=== PATIENT | female | born 1980 | race Caucasian/White ===

== ENCOUNTER 2018-07-26 11:42 | Emergency (ER) | payer OTHER ==
--- NOTE | 2018-07-26 15:39 | ED Physician Documentation ---
History of Present Illness - Stated complaint Stated Complaint: FEVER/NECK PX/VILLELA/VOMITING - Chief complaint Chief Complaint: General - History obtained from History obtained from: Patient - History of Present Illness Timing: How many days ago (4) Pain level max: 5 Pain level now: 4 Improved by: rest Worsened by: movement - Additonal information Additional information: Patient is a 38-year-old female who presents to the emergency department with fevers, cough and congestion and right-sided neck pain and right ear pain for the past 4 days. has been using motrin at home. Review of Systems Constitutional: reports: Fever, Chills GI: denies: Vomiting, Diarrhea Skin: denies: Rash Musculoskeletal: denies: Back pain Neurologic: denies: Headache PD PAST MEDICAL HISTORY - Past Medical History Past Medical History: No - Present Medications Home Medications: Ambulatory Orders Medication Instructions Recorded Confirmed Azithromycin [Zithromax] 250 mg PO ONCE #6 tablet 07/26/18 - Allergies Allergies/Adverse Reactions: Allergies Allergy/AdvReac Type Severity Reaction Status Date / Time Penicillins Allergy Unknown Verified 07/26/18 15:01 - Social History Does the pt smoke?: No Smoking Status: Never smoker PD ED PE NORMAL - Vitals Vital signs reviewed: Yes - General General: Alert and oriented X 3, No acute distress, Well developed/nourished - HEENT HEENT: PERRL, Moist mucous membranes, Pharynx benign, Other (Right tympanic membrane is scarred, erythematous, dull, bulging with purulent fluid present.) - Neck Neck: Supple, no meningeal sign, Other (Right posterior cervical lymphadenopathy present, reproduces her neck pain. No meningeal signs) - Cardiac Cardiac: RRR, Strong equal pulses - Respiratory Respiratory: No respiratory distress, Clear bilaterally - Derm Derm: Warm and dry - Neuro Neuro: Alert and oriented X 3 Results - Vitals Vitals: Vital Signs - 24 hr 07/26/18 07/26/18 07/26/18 11:57 14:28 15:52 Temperature 36.2 C L 36.2 C L Heart Rate 88 70 68 Respiratory 18 18 18 Rate Blood Pressure 123/84 H 110/67 125/77 O2 Saturation 99 97 99 Oxygen O2 Source Room air - Labs Labs: Laboratory Tests 07/26/18 07/26/18 12:12 12:12 Influenza A (Rapid) Negative Influenza B (Rapid) Negative Group A Strep Rapid Negative PD MEDICAL DECISION MAKING - ED course Complexity details: considered differential, d/w patient ED course: Patient is a 38-year-old female who presents to the emergency department what appears to be a right acute otitis media as well as a viral syndrome. She is well-appearing, nontoxic. Afebrile. No evidence of meningitis. Will place on antibiotics and follow-up closely with her doctor. Patient counseled regarding signs and symptoms for which I believe and urgent re-evaluation would be necessary. Patient with good understanding of and agreement to plan and is comfortable going home at this time This document was made in part using voice recognition software. While efforts are made to proofread this document, sound alike and grammatical errors may occur. Departure - Departure Disposition: 01 Home, Self Care Clinical Impression: Viral syndrome Otitis media Qualifiers: Otitis media type: suppurative Chronicity: acute Laterality: right Recurrence: not specified as recurrent Spontaneous tympanic membrane rupture: without spontaneous rupture Qualified Code(s): H66.001 - Acute suppurative otitis media without spontaneous rupture of ear drum, right ear Condition: Good Instructions: ED Otitis Media Acute Adult, ED Viral Syndrome Follow-Up: KHLOE RIBEIRO DO [Primary Care Provider] - Within 1 week Prescriptions: Azithromycin [Zithromax] 250 mg PO ONCE #6 tablet Comments: Take all antibiotics until gone. Return if you worsen. This should improve with the antibiotic treatment. Discharge Date/Time: 07/26/18 15:52
[2018-07-26 15:52] VITALS: BP 125/77
== END 2018-07-26 15:52 | disposition home or self-care (01) ==
LOC: ED 11:42
DX: B34.9 Viral infection, unspecified (principal); H66.001 Acute suppurative otitis media without spontaneous rupture of ear drum, right ear
CPT/HCPCS: 87070; 87275; 87276; 87430; 99283

== ENCOUNTER 2018-11-13 02:15 | Emergency (ER) | payer OTHER ==
[2018-11-13] MEDS ORDERED: SODIUM CHLORIDE 0.9% 1,000 ML IV ONE (02:22)
--- NOTE | 2018-11-13 02:33 | ED Physician Documentation ---
History of Present Illness - Stated complaint Stated Complaint: N/V S/P INGESTION/ETOH - Chief complaint Chief Complaint: MHE - Additonal information Additional information: 38-year-old female was brought in by EMS for an overdose of alcohol and cold medication. The intention is unknown. The patient is confused and altered and unable to provide any significant history. The patient was found by her and he called EMS.The history is limited secondary to the patient's intoxication Review of Systems Unable to obtain: Intoxicated PD PAST MEDICAL HISTORY - Present Medications Home Medications: Ambulatory Orders Medication Instructions Recorded Confirmed No Known Home Medications 11/13/18 11/13/18 - Allergies Allergies/Adverse Reactions: Allergies Allergy/AdvReac Type Severity Reaction Status Date / Time Penicillins Allergy Unknown Verified 11/13/18 02:23 - Social History Does the pt smoke?: No Smoking Status: Never smoker PD ED PE NORMAL - General General: Other (The patient is alert, intoxicated but appears to be in no acute distress) - HEENT HEENT: Atraumatic, PERRL, EOMI, Ears normal - Neck Neck: Supple, no meningeal sign - Cardiac Cardiac: RRR, Strong equal pulses - Respiratory Respiratory: No respiratory distress - Abdomen Abdomen: Soft, Non tender - Derm Derm: Normal color - Extremities Extremities: No deformity, No calf tenderness / cord - Neuro Neuro: Other (The patient is alert, follows commands and has no acute focal weakness) - Psych Psych: Other (Intoxicated) Results - Vitals Vitals: Vital Signs - 24 hr 11/13/18 11/13/18 11/13/18 02:17 02:25 02:49 Temperature 37.0 C Heart Rate 105 H 98 95 Respiratory 26 H 26 H 25 H Rate Blood Pressure 115/80 105/81 H 105/81 H O2 Saturation 95 95 95 11/13/18 11/13/18 11/13/18 03:08 03:42 04:46 Temperature Heart Rate 87 89 92 Respiratory 21 23 25 H Rate Blood Pressure 99/65 95/67 96/58 L O2 Saturation 95 100 96 11/13/18 11/13/18 11/13/18 05:25 05:53 06:39 Temperature 36.5 C Heart Rate 86 98 87 Respiratory 21 21 19 Rate Blood Pressure 93/59 L 104/72 98/64 O2 Saturation 96 97 96 Oxygen O2 Source Room air - Labs Labs: Laboratory Tests 11/13/18 11/13/18 11/13/18 02:30 02:30 02:43 WBC 10.0 RBC 4.15 L Hgb 14.1 Hct 40.4 MCV 97.4 MCH 33.8 H MCHC 34.7 RDW 13.9 Plt Count 242 MPV 8.3 Neut # (Auto) 6.9 H Lymph # (Auto) 2.1 [place] # (Auto) 0.7 Eos # (Auto) 0.2 Baso # (Auto) 0.1 Absolute Nucleated RBC 0.00 Nucleated RBC % 0.0 Sodium 142 Potassium 3.4 L Chloride 111 Carbon Dioxide 21 Anion Gap 10.0 BUN 8 Creatinine 0.6 Estimated GFR (MDRD) 111 Glucose 135 H Calcium 8.8 Total Bilirubin 0.2 AST 18 ALT 17 Alkaline Phosphatase 60 Total Creatine Kinase 57 Total Protein 7.0 Albumin 4.2 Globulin 2.8 Albumin/Globulin Ratio 1.5 Lipase 26 Urine Color Urine Clarity Urine pH Ur Specific [place] Urine Protein Urine Glucose (UA) Urine Ketones Urine Occult Blood Urine Nitrite Urine Bilirubin Urine Urobilinogen Ur Leukocyte Esterase Urine RBC Urine WBC Ur Squamous Epith Cells Urine Bacteria Ur Microscopic Review Urine Culture Comments Urine HCG, Qual Salicylates < 6.0 Urine Opiates Screen NEGATIVE Ur Oxycodone Screen NEGATIVE Urine Methadone Screen NEGATIVE Ur Propoxyphene Screen NEGATIVE Acetaminophen 46 H* Ur Barbiturates Screen NEGATIVE Ur Tricyclics Screen NEGATIVE Ur Phencyclidine Scrn NEGATIVE Ur Amphetamine Screen NEGATIVE U Methamphetamines Scrn NEGATIVE U Benzodiazepines Scrn NEGATIVE Urine Cocaine Screen NEGATIVE U Cannabinoids Screen NEGATIVE Ethyl Alcohol 262.7 11/13/18 11/13/18 02:43 05:50 WBC RBC Hgb Hct MCV MCH MCHC RDW Plt Count MPV Neut # (Auto) Lymph # (Auto) [place] # (Auto) Eos # (Auto) Baso # (Auto) Absolute Nucleated RBC Nucleated RBC % Sodium Potassium Chloride Carbon Dioxide Anion Gap BUN Creatinine Estimated GFR (MDRD) Glucose Calcium Total Bilirubin AST ALT Alkaline Phosphatase Total Creatine Kinase Total Protein Albumin Globulin Albumin/Globulin Ratio Lipase Urine Color STRAW Urine Clarity CLEAR Urine pH 6.0 Ur Specific [place] <=1.005 Urine Protein NEGATIVE Urine Glucose (UA) NEGATIVE Urine Ketones NEGATIVE Urine Occult Blood TRACE-LYSE Urine Nitrite NEGATIVE Urine Bilirubin NEGATIVE Urine Urobilinogen 0.2 (NORMAL) Ur Leukocyte Esterase TRACE H Urine RBC None Seen Urine WBC 0-3 Ur Squamous Epith Cells MOD Squamous H Urine Bacteria None Seen Ur Microscopic Review INDICATED Urine Culture Comments NOT INDICATED Urine HCG, Qual NEGATIVE Salicylates Urine Opiates Screen Ur Oxycodone Screen Urine Methadone Screen Ur Propoxyphene Screen Acetaminophen 30 Ur Barbiturates Screen Ur Tricyclics Screen Ur Phencyclidine Scrn Ur Amphetamine Screen U Methamphetamines Scrn U Benzodiazepines Scrn Urine Cocaine Screen U Cannabinoids Screen Ethyl Alcohol PD MEDICAL DECISION MAKING - ED course ED course: The patient ingested alcohol and cold medication and her intent is unclear. The patient will require further Metabolization of her overdose. The patient will require an evaluation by social work for further evaluation to make sure that this is not a suicide attempt. 7 AM the case was turned over to Dr. Solano for follow-up on the social work consult and for final disposition Departure - Departure Clinical Impression: Overdose Qualifiers: Encounter type: initial encounter Injury intent: undetermined intent Qualified Code(s): T50.904A - Poisoning by unspecified drugs, medicaments and biological substances, undetermined, initial encounter
[2018-11-13 02:36] LABS: BASOPHILS # (AUTO) 0.1 10^3/uL (0.0-0.1); BASOPHILS % (AUTO) 0.8 %; EOSINOPHILS # (AUTO) 0.2 10^3/uL (0.0-0.7); EOSINOPHILS % (AUTO) 1.8 %; HGB - HEMOGLOBIN 14.1 g/dL (12.0-16.0); LYMPHOCYTES # (AUTO) 2.1 10^3/uL (1.5-3.5); LYMPHOCYTES % (AUTO) 20.9 %; MEAN CORPUSCULAR HEMOGLOBIN 33.8 pg (27.0-31.0); MEAN CORPUSCULAR HGB CONC 34.7 g/dL (32.0-36.0); MEAN CORPUSCULAR VOLUME 97.4 fL (81.0-99.0); MEAN PLATELET VOLUME 8.3 fL (7.9-10.8); MONOCYTES # (AUTO) 0.7 10^3/uL (0.0-1.0); MONOCYTES % (AUTO) 6.9 %; NEUTROPHILS # (AUTO) 6.9 10^3/uL (1.5-6.6); NEUTROPHILS % (AUTO) 69.6 %; PLT - PLATELET COUNT 242 10^3/uL (130-450); RED BLOOD COUNT 4.15 10^6/uL (4.20-5.40); RED CELL DISTRIBUTION WIDTH 13.9 % (12.0-15.0)
[2018-11-13 02:50] LABS: BILIRUBIN,URINE NEGATIVE (NEGATIVE); GLUCOSE, URINE (UA) NEGATIVE (NEGATIVE); KETONES,URINE (UA) NEGATIVE (NEGATIVE); LEUKOCYTE ESTERASE, URINE TRACE (NEGATIVE); NITRITE,URINE NEGATIVE (NEGATIVE); OCCULT BLOOD,URINE TRACE-LYSE (NEGATIVE); PROTEIN,URINE NEGATIVE (NEGATIVE); UROBILINOGEN,URINE 0.2 (NORMAL) E.U./dL (NORMAL)
[2018-11-13 02:51] LABS: ALBUMIN 4.2 g/dL (3.2-5.5); ALBUMIN/GLOBULIN RATIO 1.5 (1.0-2.2); ALKALINE PHOSPHATASE 60 IU/L (42-121); ALT ALANINE AMINOTRANSFERASE 17 IU/L (10-60); AST ASPARTATE AMINOTRANSFERASE 18 IU/L (10-42); BILIRUBIN,TOTAL 0.2 mg/dL (0.2-1.0); BUN - BLOOD UREA NITROGEN 8 mg/dL (6-20); CALCIUM 8.8 mg/dL (8.5-10.3); CARBON DIOXIDE - CO2 21 mmol/L (21-32); CHLORIDE 111 mmol/L (101-111); CK- CREATINE KINASE 57 IU/L (22-269); CREATININE 0.6 mg/dL (0.4-1.0); GFR - MDRD 111 (>89); GLUCOSE 135 mg/dL (70-100); LIPASE 26 U/L (22-51); SODIUM 142 mmol/L (135-145)
[2018-11-13 02:52] LABS: SALICYLATE < 6.0 mg/dL
[2018-11-13 02:53] LABS: ACETAMINOPHEN 46 ug/mL (10-30)
[2018-11-13 03:02] LABS: AMPHETAMINE SCREEN,URINE NEGATIVE (NEGATIVE); BENZODIAZEPINES SCREEN, URINE NEGATIVE (NEGATIVE); CLARITY,URINE CLEAR (CLEAR); COCAINE SCREEN URINE NEGATIVE (NEGATIVE); METHADONE SCREEN, URINE NEGATIVE (NEGATIVE); METHAMPHETAMINES SCREEN, URINE NEGATIVE (NEGATIVE); MUDS CUTOFF CONCENTRATIONS CUTOFF CONC BELOW:; OPIATE SCREEN, URINE NEGATIVE (NEGATIVE); OXYCODONE SCREEN, URINE NEGATIVE (NEGATIVE); PROPOXYPHENE SCREEN, URINE NEGATIVE (NEGATIVE); TRICYCLIC ANTIDEPRESSANT,URINE NEGATIVE (NEGATIVE)
[2018-11-13 03:03] LABS: BACTERIA,URINE None Seen /HPF (None Seen); HCG UR QUAL NEGATIVE; RBC,URINE None Seen /HPF (0-5); SQUAMOUS EPITHELIAL CELL,UR MOD Squamous (<= Few)
[2018-11-13] MEDS ORDERED: ONDANSETRON 4 MG/2 ML VIAL IVP STA (11:24)
[2018-11-13] MEDS ORDERED: DEXAMETHASONE 10 MG/ML VIAL IVP STA (13:56)
--- NOTE | 2018-11-13 13:59 | ED Physician Documentation ---
History of Present Illness - Stated complaint Stated Complaint: N/V S/P INGESTION/ETOH - Chief complaint Chief Complaint: MHE - History obtained from History obtained from: Patient, Family - History of Present Illness Timing: Last night - Additonal information Additional information: 38-year-old female with a history of bipolar disorder has been depressed for a bout 6 months and last night she drank excessively and took an overdose of cold medication and spent the night in the emergency department metabolizing. She is now awake alert and cooperative and she is able to give further history. She indicates that she has not been sleeping well for the past 6-7 months and that her depression is deepened. She does state that she has been suicidal previously she is not suicidal now and the social worker clinical has been into talk to the patient and arrangements were made for the patient to have follow-up tomorrow with her primary care and with a counselor. The patient states that she has developed a cough recently over the last 4 days she does have a history of frequent otitis and mastoiditis she has seen an ear nose and throat doctor for this and is going to need a referral to ENT in [place] from the ENT in [place]. Review of Systems Ears: reports: Ear pain Nose: reports: Rhinorrhea / runny nose, Congestion Respiratory: reports: Cough GI: reports: Nausea Psychiatric: reports: Depressed, Anxiety, Insomnia. 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: Ovarian cancer - Past Surgical History Past Surgical History: Yes Ortho: Other /CODING QUALITY ANALYST: Dilation and currettage, Tubal ligation HEENT: Other - Present Medications Home Medications: Ambulatory Orders Medication Instructions Recorded Confirmed Cefdinir 300 mg PO BID #20 capsule 11/13/18 - Allergies Allergies/Adverse Reactions: Allergies Allergy/AdvReac Type Severity Reaction Status Date / Time Penicillins Allergy Unknown Verified 11/13/18 02:23 - Social History Does the pt smoke?: No Smoking Status: Never smoker Does the pt drink ETOH?: Yes ETOH Use: Beer Does the pt have substance abuse?: Yes Substance Use and Type: Meth - Immunizations Immunizations are current?: Yes - POLST Patient has POLST: No PD ED PE NORMAL - Vitals Vital signs reviewed: Yes (normal at time of exam. ) - General General: Alert and oriented X 3, Well developed/nourished - HEENT HEENT: Atraumatic, PERRL, EOMI, Other (The right TM is inflamed with distortion of the landmarks and buldging. The left is inflamed with distorted landmarks but involved to a much less extent. ) - Neck Neck: Supple, no meningeal sign, No bony TTP - Respiratory Respiratory: No respiratory distress - Derm Derm: Normal color, Warm and dry, No rash - Extremities Extremities: No deformity, No edema - Neuro Neuro: Alert and oriented X 3, analytical lead 2-12 intact, No motor deficit, No sensory deficit, Normal speech Eye Opening: Spontaneous Motor: Obeys Commands Verbal: Oriented GCS Score: 15 - Psych Psych: Other (mood is withdrawn and the affect is flat. ) Results - Vitals Vitals: Vital Signs - 24 hr 11/13/18 11/13/18 11/13/18 02:17 02:25 02:49 Temperature 37.0 C Heart Rate 105 H 98 95 Respiratory 26 H 26 H 25 H Rate Blood Pressure 115/80 105/81 H 105/81 H O2 Saturation 95 95 95 11/13/18 11/13/18 11/13/18 03:08 03:42 04:46 Temperature Heart Rate 87 89 92 Respiratory 21 23 25 H Rate Blood Pressure 99/65 95/67 96/58 L O2 Saturation 95 100 96 11/13/18 11/13/18 11/13/18 05:25 05:53 06:39 Temperature 36.5 C Heart Rate 86 98 87 Respiratory 21 21 19 Rate Blood Pressure 93/59 L 104/72 98/64 O2 Saturation 96 97 96 Oxygen O2 Source Room air - Labs Labs: Laboratory Tests 11/13/18 11/13/18 11/13/18 02:30 02:30 02:43 WBC 10.0 RBC 4.15 L Hgb 14.1 Hct 40.4 MCV 97.4 MCH 33.8 H MCHC 34.7 RDW 13.9 Plt Count 242 MPV 8.3 Neut # (Auto) 6.9 H Lymph # (Auto) 2.1 [place] # (Auto) 0.7 Eos # (Auto) 0.2 Baso # (Auto) 0.1 Absolute Nucleated RBC 0.00 Nucleated RBC % 0.0 Sodium 142 Potassium 3.4 L Chloride 111 Carbon Dioxide 21 Anion Gap 10.0 BUN 8 Creatinine 0.6 Estimated GFR (MDRD) 111 Glucose 135 H Calcium 8.8 Total Bilirubin 0.2 AST 18 ALT 17 Alkaline Phosphatase 60 Total Creatine Kinase 57 Total Protein 7.0 Albumin 4.2 Globulin 2.8 Albumin/Globulin Ratio 1.5 Lipase 26 Urine Color Urine Clarity Urine pH Ur Specific [place] Urine Protein Urine Glucose (UA) Urine Ketones Urine Occult Blood Urine Nitrite Urine Bilirubin Urine Urobilinogen Ur Leukocyte Esterase Urine RBC Urine WBC Ur Squamous Epith Cells Urine Bacteria Ur Microscopic Review Urine Culture Comments Urine HCG, Qual Salicylates < 6.0 Urine Opiates Screen NEGATIVE Ur Oxycodone Screen NEGATIVE Urine Methadone Screen NEGATIVE Ur Propoxyphene Screen NEGATIVE Acetaminophen 46 H* Ur Barbiturates Screen NEGATIVE Ur Tricyclics Screen NEGATIVE Ur Phencyclidine Scrn NEGATIVE Ur Amphetamine Screen NEGATIVE U Methamphetamines Scrn NEGATIVE U Benzodiazepines Scrn NEGATIVE Urine Cocaine Screen NEGATIVE U Cannabinoids Screen NEGATIVE Ethyl Alcohol 262.7 11/13/18 11/13/18 11/13/18 02:43 05:50 09:58 WBC RBC Hgb Hct MCV MCH MCHC RDW Plt Count MPV Neut # (Auto) Lymph # (Auto) [place] # (Auto) Eos # (Auto) Baso # (Auto) Absolute Nucleated RBC Nucleated RBC % Sodium Potassium Chloride Carbon Dioxide Anion Gap BUN Creatinine Estimated GFR (MDRD) Glucose Calcium Total Bilirubin AST ALT Alkaline Phosphatase Total Creatine Kinase Total Protein Albumin Globulin Albumin/Globulin Ratio Lipase Urine Color STRAW Urine Clarity CLEAR Urine pH 6.0 Ur Specific [place] <=1.005 Urine Protein NEGATIVE Urine Glucose (UA) NEGATIVE Urine Ketones NEGATIVE Urine Occult Blood TRACE-LYSE Urine Nitrite NEGATIVE Urine Bilirubin NEGATIVE Urine Urobilinogen 0.2 (NORMAL) Ur Leukocyte Esterase TRACE H Urine RBC None Seen Urine WBC 0-3 Ur Squamous Epith Cells MOD Squamous H Urine Bacteria None Seen Ur Microscopic Review INDICATED Urine Culture Comments NOT INDICATED Urine HCG, Qual NEGATIVE Salicylates Urine Opiates Screen Ur Oxycodone Screen Urine Methadone Screen Ur Propoxyphene Screen Acetaminophen 30 Ur Barbiturates Screen Ur Tricyclics Screen Ur Phencyclidine Scrn Ur Amphetamine Screen U Methamphetamines Scrn U Benzodiazepines Scrn Urine Cocaine Screen U Cannabinoids Screen Ethyl Alcohol 67.7 PD MEDICAL DECISION MAKING - ED course Complexity details: reviewed old records, reviewed results, re-evaluated patient, considered differential, d/w patient, d/w family ED course: 38-year-old female with a history of bipolar disorder has had cold medication overdose and alcohol intoxication and during that time she made suicidal statements. She has been medically cleared this morning and she has been evaluated by the social worker clinical and arrangements have been made for follow-up. The patient is not suicidal now. Her care was turned over to me by Dr. Peres at the conclusion of the investigator operator and the patient has been allowed to metabolize her alcohol a second alcohol level has been obtained and follow-up has been arranged. On my evaluation this afternoon it is clear the patient has a cough and congestion and on examination has otitis especially bad in the right ear and this has been a problem for this patient for some time. She has specialist follow-up regarding this. She appears to have acute infection today and this is treated with the use of dexamethasone 10 mg given and we will place her on some Cefdinir. Departure - Departure Disposition: 01 Home, Self Care Clinical Impression: Overdose Qualifiers: Encounter type: initial encounter Injury intent: undetermined intent Qualified Code(s): T50.904A - Poisoning by unspecified drugs, medicaments and biological substances, undetermined, initial encounter Depression Qualifiers: Depression Type: unspecified Qualified Code(s): F32.9 - Major depressive disorder, single episode, unspecified Otitis media Qualifiers: Otitis media type: suppurative Chronicity: acute Laterality: bilateral Recurrence: recurrent Spontaneous tympanic membrane rupture: without spontaneous rupture Qualified Code(s): H66.006 - Acute suppurative otitis media without spontaneous rupture of ear drum, recurrent, bilateral Condition: Stable Instructions: ED Stress React, ED Depression, ED Otitis Media Acute Adult Follow-Up: KHLOE RIBEIRO DO [Primary Care Provider] - Prescriptions: Cefdinir 300 mg PO BID #20 capsule
[2018-11-13] MEDS ORDERED: CHERRY SYRUP 10 ML UDC PO ONE (14:14)
[2018-11-13 14:24] VITALS: BP 112/68
== END 2018-11-13 14:34 | disposition home or self-care (01) ==
LOC: EDUNIT# → ED 02:15
DX: T50.904A Poisoning by unspecified drugs, medicaments and biological substances, undetermined, initial encounter (principal); F10.129 Alcohol abuse with intoxication, unspecified; R11.2 Nausea with vomiting, unspecified; H66.006 Acute suppurative otitis media without spontaneous rupture of ear drum, recurrent, bilateral; F31.9 Bipolar disorder, unspecified
CPT/HCPCS: 36415; 80053; 80306; 80307; 80320; 80329; 81001; 81025; 82550; 83690; 85025; 96361; 96374; 96375; 99283; 99285; A9270; 81003; 87086

== ENCOUNTER 2020-04-19 17:43 | Emergency (ER) | payer OTHER ==
[2020-04-19 18:10] LABS: BASOPHILS # (AUTO) 0.1 10^3/uL (0.0-0.1); BASOPHILS % (AUTO) 0.8 %; EOSINOPHILS # (AUTO) 0.2 10^3/uL (0.0-0.7); EOSINOPHILS % (AUTO) 1.5 %; LYMPHOCYTES # (AUTO) 1.8 10^3/uL (1.5-3.5); LYMPHOCYTES % (AUTO) 17.1 %; MEAN CORPUSCULAR HEMOGLOBIN 33.8 pg (27.0-31.0); MEAN CORPUSCULAR HGB CONC 34.2 g/dL (32.0-36.0); MEAN CORPUSCULAR VOLUME 98.9 fL (81.0-99.0); MEAN PLATELET VOLUME 10.3 fL (7.9-10.8); MONOCYTES # (AUTO) 0.5 10^3/uL (0.0-1.0); NEUTROPHILS # (AUTO) 7.7 10^3/uL (1.5-6.6); PLT - PLATELET COUNT 241 10^3/uL (130-450); RED BLOOD COUNT 4.44 10^6/uL (4.20-5.40); RED CELL DISTRIBUTION WIDTH 12.7 % (12.0-15.0); WHITE BLOOD COUNT 10.3 x10^3/uL (4.8-10.8)
[2020-04-19] MEDS ORDERED: SODIUM CHLORIDE 0.9% 1,000 ML IV STA ×2 (18:12)
[2020-04-19 18:24] LABS: ALBUMIN/GLOBULIN RATIO 2.2 (1.0-2.2); BILIRUBIN,TOTAL 0.7 mg/dL (0.2-1.0); CALCIUM 9.6 mg/dL (8.5-10.3); TOTAL PROTEIN 7.3 g/dL (6.7-8.2)
[2020-04-19 19:15] LABS: BILIRUBIN,URINE NEGATIVE (NEGATIVE); GLUCOSE, URINE (UA) NEGATIVE (NEGATIVE); KETONES,URINE (UA) NEGATIVE (NEGATIVE); LEUKOCYTE ESTERASE, URINE NEGATIVE (NEGATIVE); NITRITE,URINE NEGATIVE (NEGATIVE); OCCULT BLOOD,URINE SMALL (NEGATIVE); PROTEIN,URINE NEGATIVE (NEGATIVE); UROBILINOGEN,URINE 0.2 (NORMAL) E.U./dL (NORMAL)
[2020-04-19 19:18] LABS: CLARITY,URINE CLEAR (CLEAR); HCG UR QUAL NEGATIVE
[2020-04-19 19:26] LABS: BACTERIA,URINE None Seen /HPF (None Seen); RBC,URINE 0-5 /HPF (0-5); SQUAMOUS EPITHELIAL CELL,UR MOD Squamous (<= Few)
[2020-04-19] MEDS ORDERED: IOVERSOL 320 100 ML VIAL IVP ONE ×2 (19:37→20:29)
--- NOTE | 2020-04-19 19:37 | ED Physician Documentation ---
PD HPI ABD PAIN - Stated complaint Stated Complaint: DEHYDRATION - Chief complaint Chief Complaint: Abd Pain - History obtained from History obtained from: Patient - History of Present Illness Timing - onset: How many days ago (3-4) Timing - duration: Days Timing - details: Gradual onset Pain level max: 5 Pain level now: 3 Quality: Aching, Pain Location: RLQ, Suprapubic, LLQ Recently seen: Not recently seen Review of Systems Constitutional: denies: Fever, Chills GI: denies: Vomiting Skin: denies: Rash Musculoskeletal: denies: Neck pain, Back pain Neurologic: denies: Headache PD PAST MEDICAL HISTORY - Past Medical History Past Medical History: Yes CONTACT AGENT: Ovarian cancer - Past Surgical History Past Surgical History: Yes Ortho: Other /CONTACT AGENT: Dilation and currettage, Tubal ligation HEENT: Other - Present Medications Home Medications: Ambulatory Orders Medication Instructions Recorded Confirmed Cefdinir 300 mg PO BID #20 capsule 11/13/18 Sulfamethox/Trimeth 800/160 1 each PO BID #20 tablet 04/19/20 [Bactrim Ds 800/160] metroNIDAZOLE [Flagyl] 500 mg PO TID #30 tablet 04/19/20 - Allergies Allergies/Adverse Reactions: Allergies Allergy/AdvReac Type Severity Reaction Status Date / Time Penicillins Allergy Unknown Verified 04/19/20 17:53 - Living Situation Living Situation: reports: With family Living Arrangement: reports: At home - Social History Does the pt smoke?: No Smoking Status: Never smoker Does the pt drink ETOH?: Yes Does the pt have substance abuse?: Yes - Immunizations Immunizations are current?: Yes - POLST Patient has POLST: No PD ED PE NORMAL - Vitals Vital signs reviewed: Yes - General General: Alert and oriented X 3, No acute distress - HEENT HEENT: Moist mucous membranes - Neck Neck: Supple, no meningeal sign - Cardiac Cardiac: RRR, Strong equal pulses - Respiratory Respiratory: No respiratory distress, Clear bilaterally - Abdomen Abdomen: Soft, Non tender, Non distended - Derm Derm: Warm and dry - Extremities Extremities: No edema - Neuro Neuro: Alert and oriented X 3 Results - Vitals Vitals: Vital Signs - 24 hr 04/19/20 04/19/20 04/19/20 17:50 19:23 21:41 Temperature 37.5 C 37.1 C 37 C Heart Rate 105 H 82 82 Respiratory 20 18 18 Rate Blood Pressure 145/99 H 125/90 H 135/93 H O2 Saturation 98 98 98 Oxygen O2 Source Room air - Labs Labs: Laboratory Tests 04/19/20 04/19/20 04/19/20 18:00 18:05 18:05 WBC 10.3 RBC 4.44 Hgb 15.0 Hct 43.9 MCV 98.9 MCH 33.8 H MCHC 34.2 RDW 12.7 Plt Count 241 MPV 10.3 Neut # (Auto) 7.7 H Lymph # (Auto) 1.8 [place] # (Auto) 0.5 Eos # (Auto) 0.2 Baso # (Auto) 0.1 Absolute Nucleated RBC 0.00 Nucleated RBC % 0.0 Sodium 137 Potassium 3.6 Chloride 103 Carbon Dioxide 26 Anion Gap 8.0 BUN 14 Creatinine 1.0 Estimated GFR (MDRD) 61 L Glucose 124 H Calcium 9.6 Total Bilirubin 0.7 AST 25 ALT 34 Alkaline Phosphatase 60 Total Protein 7.3 Albumin 5.0 Globulin 2.3 Albumin/Globulin Ratio 2.2 Lipase 29 Urine Color YELLOW Urine Clarity CLEAR Urine pH 7.0 Ur Specific [place] 1.020 Urine Protein NEGATIVE Urine Glucose (UA) NEGATIVE Urine Ketones NEGATIVE Urine Occult Blood SMALL H Urine Nitrite NEGATIVE Urine Bilirubin NEGATIVE Urine Urobilinogen 0.2 (NORMAL) Ur Leukocyte Esterase NEGATIVE Urine RBC 0-5 Urine WBC 0-3 Ur Squamous Epith Cells MOD Squamous H Urine Bacteria None Seen Ur Microscopic Review INDICATED Urine Culture Comments NOT INDICATED Urine HCG, Qual NEGATIVE - Rads (name of study) CT abdomen pelvis Radiology: Prelim report reviewed, EMP read contemporaneously, See rad report PD MEDICAL DECISION MAKING - ED course Complexity details: reviewed results, re-evaluated patient, considered differential, d/w patient ED course: 39-year-old female with lower abdominal pain and back pain. CT is read as no acute abnormalities, however on my read she appears to have inflammation and bowel wall thickening at the terminal ileum. We will treat her as a colitis. She is well-appearing, nontoxic. Exam is consistent with colitis as well. Patient counseled regarding signs and symptoms for which I believe and urgent re-evaluation would be necessary. Patient with good understanding of and agreement to plan and is comfortable going home at this time This document was made in part using voice recognition software. While efforts are made to proofread this document, sound alike and grammatical errors may occur. Departure - Departure Disposition: 01 Home, Self Care Clinical Impression: Colitis Condition: Good Instructions: ED Diverticulitis Follow-Up: KHLEO RIBEIRO DO [Primary Care Provider] - Within 1 week Prescriptions: Sulfamethox/Trimeth 800/160 [Bactrim Ds 800/160] 1 each PO BID #20 tablet metroNIDAZOLE [Flagyl] 500 mg PO TID #30 tablet Comments: Take all antibiotics until gone. Return if you worsen. Follow-up with your doctor for further care. You appear to have inflammation of your terminal ileum tonight. Discharge Date/Time: 04/19/20 21:42
[2020-04-19] MEDS ORDERED: ACETAMINOPHEN 325 MG TABLET PO STA (20:07)
--- NOTE | 2020-04-19 20:44 | CT Report ---
PROCEDURE: Abdomen/Pelvis W INDICATIONS: lower abd pain, weakness CONTRAST: IV CONTRAST: Optiray 320 ml: 100 PO CONTRAST: *NO PO CONTRAST TECHNIQUE: After the administration of oral and intravenous contrast, 5 mm thick sections acquired from the diap hragms to the symphysis. 5 mm thick coronal and sagittal reformats were acquired. For radiation dos e reduction, the following was used: automated exposure control, adjustment of mA and/or kV accordin g to patient size. COMPARISON: None. FINDINGS: Image quality: Excellent. ABDOMEN: Lung bases: Left basilar scarring/atelectasis is seen. Heart size is normal. Solid organs: Liver and spleen are normal in size and enhancement. Gallbladder is within normal minor its Biliary system is non dilated. Pancreas enhances normally. No adrenal nodules. Kidneys demons trate normal size and enhancement, without hydronephrosis. Peritoneum and bowel: Bowel loops demonstrate normal wall thickness and caliber. No free fluid or a ir. Appendix is visualized and is within normal limits. Nodes and vessels: No retroperitoneal or mesenteric adenopathy by size criteria. Aorta and inferior vena cava are normal in size. Miscellaneous: No ventral hernias. PELVIS: Genitourinary: Bladder wall thickness is normal. Intrauterine device is seen. Uterus and bilateral ovaries are within normal limits. Miscellaneous: No inguinal hernias or adenopathy. Bones: No suspicious bony lesions. No vertebral body compression fractures. IMPRESSION: 1. No acute inflammatory process within abdomen or pelvis. No bowel obstruction. Normal appendix. No free fluid of free air. 2. Intrauterine device in situ. Reviewed by: Yony Chavez MD on 04/19/2020 8:43 PM PDT Approved by: Yony Chavez MD on 04/19/2020 8:43 PM PDT Station ID: [id number]
[2020-04-19] MEDS ORDERED: SULFAMETH/TRIMETH DS 800/160 MG TABLET PO STA (20:52)
[2020-04-19] MEDS ORDERED: metroNIDAZOLE 250 MG TABLET PO STA (20:52)
[2020-04-19 21:42] VITALS: BP 135/93
== END 2020-04-19 21:42 | disposition home or self-care (01) ==
LOC: ED 17:43
DX: K52.9 Noninfective gastroenteritis and colitis, unspecified (principal)
CPT/HCPCS: 36415; 74177; 80053; 81001; 81025; 83690; 85025; 96360; 99284; A9270; Q9967; 81003; 87086

== ENCOUNTER 2020-06-23 10:08 | Emergency (ER) | payer OTHER ==
[2020-06-23] MEDS ORDERED: HYDROmorphone 1 MG/ML CARPUJECT IVP STA ×2 (10:56→12:11)
[2020-06-23] MEDS ORDERED: SODIUM CHLORIDE 0.9% 1,000 ML IV STA (10:56)
[2020-06-23] MEDS ORDERED: METOCLOPRAMIDE 10 MG/2 ML VIAL IVP STA (10:56)
--- NOTE | 2020-06-23 11:01 | ED Physician Documentation ---
PD HPI HEADACHE - Stated complaint Stated Complaint: VILLELA/VOMITING - Chief complaint Chief Complaint: Neuro - History obtained from History obtained from: Patient - Additional information Additional information: For the last 4 days she had a progressive occipital headache radiating down into the neck associated with vomiting and slight photophobia and phonophobia. No history of migraines. No fevers. 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: Ovarian cancer - Past Surgical History Past Surgical History: Yes Ortho: Other /SPORTS WRITER: Dilation and currettage, Tubal ligation HEENT: Other - Present Medications Home Medications: Ambulatory Orders Medication Instructions Recorded Confirmed Cefdinir 300 mg PO BID #20 capsule 11/13/18 Sulfamethox/Trimeth 800/160 1 each PO BID #20 tablet 04/19/20 [Bactrim Ds 800/160] metroNIDAZOLE [Flagyl] 500 mg PO TID #30 tablet 04/19/20 Cyclobenzaprine [Flexeril] 10 mg PO TID PRN #20 tablet 06/23/20 Ibuprofen [Motrin] 800 mg PO Q8H PRN #30 tablet 06/23/20 Ondansetron Odt [Zofran] 4 mg TL Q6H PRN #10 tablet 06/23/20 - Allergies Allergies/Adverse Reactions: Allergies Allergy/AdvReac Type Severity Reaction Status Date / Time Penicillins Allergy Unknown Verified 04/19/20 17:53 - Social History Does the pt smoke?: No Smoking Status: Never smoker Does the pt drink ETOH?: Yes Does the pt have substance abuse?: Yes - Immunizations Immunizations are current?: Yes - POLST Patient has POLST: No PD ED PE NORMAL - Vitals Vital signs reviewed: Yes - General General: Alert and oriented X 3 (Appears uncomfortable) - HEENT HEENT: PERRL (Soft globes), EOMI - Neck Neck: Supple, no meningeal sign, No bony TTP - Cardiac Cardiac: RRR, No murmur - Respiratory Respiratory: No respiratory distress, Clear bilaterally - Abdomen Abdomen: Non tender - Back Back: No CVA TTP, No spinal TTP - Derm Derm: Normal color, Warm and dry - Neuro Neuro: Alert and oriented X 3, desktop support manager 2-12 intact, No motor deficit, No sensory deficit, Normal speech Results - Vitals Vitals: Vital Signs - 24 hr 06/23/20 06/23/20 10:38 11:31 Temperature 36.3 C L Heart Rate 91 61 Respiratory 18 16 Rate Blood Pressure 145/98 H 115/69 O2 Saturation 99 96 Oxygen O2 Source Room air - Labs Labs: Laboratory Tests 06/23/20 06/23/20 06/23/20 10:57 10:57 10:57 WBC 9.4 RBC 4.42 Hgb 15.1 Hct 44.3 MCV 100.2 H MCH 34.2 H MCHC 34.1 RDW 13.1 Plt Count 240 MPV 10.5 Neut # (Auto) 7.6 H Lymph # (Auto) 1.1 L [place] # (Auto) 0.4 Eos # (Auto) 0.1 Baso # (Auto) 0.1 Absolute Nucleated RBC 0.00 Nucleated RBC % 0.0 PT 12.0 INR 1.1 Sodium 140 Potassium 4.3 Chloride 107 Carbon Dioxide 22 Anion Gap 11.0 BUN 14 Creatinine 0.8 Estimated GFR (MDRD) 79 L Glucose 119 H Calcium 9.5 Total Bilirubin 0.5 AST 25 ALT 43 Alkaline Phosphatase 61 Total Protein 7.0 Albumin 4.2 Globulin 2.8 Albumin/Globulin Ratio 1.5 Lipase 21 L CSF Color CSF Clarity Xanthrochromic CSF WBC CSF RBC CSF Cell Count Tube # CSF Glucose CSF Total Protein 06/23/20 06/23/20 12:00 12:00 WBC RBC Hgb Hct MCV MCH MCHC RDW Plt Count MPV Neut # (Auto) Lymph # (Auto) [place] # (Auto) Eos # (Auto) Baso # (Auto) Absolute Nucleated RBC Nucleated RBC % PT INR Sodium Potassium Chloride Carbon Dioxide Anion Gap BUN Creatinine Estimated GFR (MDRD) Glucose Calcium Total Bilirubin AST ALT Alkaline Phosphatase Total Protein Albumin Globulin Albumin/Globulin Ratio Lipase CSF Color COLORLESS CSF Clarity CLEAR Xanthrochromic ABSENT CSF WBC 1 CSF RBC 0 CSF Cell Count Tube # CSF TUBE# 3 CSF Glucose 67 CSF Total Protein 36 Procedures - Lumbar Puncture Position: Sitting Location: L3-L4 Anesthesia: Local lidocaine CSF: Clear Other: Sterile prep and drape, Patient tolerated well, No complications PD MEDICAL DECISION MAKING - ED course ED course: 40-year-old woman with gradual onset worst headache of life, predominantly posterior. CT of the head and LP were normal ruling out subarachnoid hemorrhage and meningitis. She was feeling better after meds here, suspect this is a tension headache, there are quite a few stressors. Departure - Departure Disposition: 01 Home, Self Care Clinical Impression: Headache Qualifiers: Headache type: tension-type Headache chronicity pattern: acute headache Intractability: not intractable Qualified Code(s): G44.209 - Tension-type he adache, unspecified, not intractable Condition: Good Record reviewed to determine appropriate education?: Yes Instructions: ED Cephalgia Unspecified Prescriptions: Cyclobenzaprine [Flexeril] 10 mg PO TID PRN #20 tablet PRN Reason: Spasms Ibuprofen [Motrin] 800 mg PO Q8H PRN #30 tablet PRN Reason: PAIN &/OR FEVER Ondansetron Odt [Zofran] 4 mg TL Q6H PRN #10 tablet PRN Reason: Nausea / Vomiting Comments: CT of the head and lumbar puncture were perfectly normal today. Return for new or worsening symptoms. Follow-up with your doctor regardless.
[2020-06-23 11:02] LABS: BASOPHILS # (AUTO) 0.1 10^3/uL (0.0-0.1); BASOPHILS % (AUTO) 0.7 %; EOSINOPHILS # (AUTO) 0.1 10^3/uL (0.0-0.7); EOSINOPHILS % (AUTO) 1.3 %; HGB - HEMOGLOBIN 15.1 g/dL (12.0-16.0); LYMPHOCYTES # (AUTO) 1.1 10^3/uL (1.5-3.5); LYMPHOCYTES % (AUTO) 11.8 %; MEAN CORPUSCULAR HEMOGLOBIN 34.2 pg (27.0-31.0); MEAN CORPUSCULAR HGB CONC 34.1 g/dL (32.0-36.0); MEAN CORPUSCULAR VOLUME 100.2 fL (81.0-99.0); MEAN PLATELET VOLUME 10.5 fL (7.9-10.8); MONOCYTES # (AUTO) 0.4 10^3/uL (0.0-1.0); MONOCYTES % (AUTO) 4.3 %; NEUTROPHILS # (AUTO) 7.6 10^3/uL (1.5-6.6); NEUTROPHILS % (AUTO) 81.5 %; PLT - PLATELET COUNT 240 10^3/uL (130-450); RED BLOOD COUNT 4.42 10^6/uL (4.20-5.40); RED CELL DISTRIBUTION WIDTH 13.1 % (12.0-15.0); WHITE BLOOD COUNT 9.4 x10^3/uL (4.8-10.8)
[2020-06-23 11:11] LABS: INR 1.1 (0.8-1.2)
[2020-06-23 11:14] LABS: ALBUMIN 4.2 g/dL (3.2-5.5); ALBUMIN/GLOBULIN RATIO 1.5 (1.0-2.2); BILIRUBIN,TOTAL 0.5 mg/dL (0.2-1.0); CALCIUM 9.5 mg/dL (8.5-10.3); CREATININE 0.8 mg/dL (0.4-1.0)
--- NOTE | 2020-06-23 11:40 | CT Report ---
PROCEDURE: HEAD WO INDICATIONS: headache TECHNIQUE: Noncontrast 4.5 mm thick angled axial sections acquired from the foramen magnum to the vertex. For r adiation dose reduction, the following was used: automated exposure control, adjustment of mA and/or kV according to patient size. COMPARISON: None. FINDINGS: Image quality: Excellent. CSF spaces: Basal cisterns are patent. No extra-axial fluid collections. Ventricles are normal in size and shape. Brain: No midline shift. No intracranial masses or hemorrhage. [place]-white matter interface is norm al. Skull and face: Calvarium and visualized facial bones are intact, without suspicious lesions. Sinuses: Visualized sinuses and mastoids are clear. IMPRESSION: Unremarkable head CT. No evidence acute stroke, hemorrhage, or mass. Reviewed by: Eligio Flowers MD on 06/23/2020 10:39 AM HARJEET Approved by: Eligio Flowers MD on 06/23/2020 10:39 AM HARJEET Station ID: [id number]
[2020-06-23] MEDS ORDERED: KETOROLAC 30 MG/ML VIAL IVP STA (12:11)
[2020-06-23 12:40] LABS: CSF - GLUCOSE 67 mg/dL (45-70)
[2020-06-23 12:47] LABS: CLARITY,CSF CLEAR (CLEAR); COLOR,CSF COLORLESS (COLORLESS); CSF TUBE # CSF TUBE# 3; CSF XANTHOCHROMIA ABSENT (ABSENT); RED BLOOD CELL,CSF 0 /mm^3 (0-1); WHITE BLOOD CELL,CSF 1 /mm^3 (0-5)
[2020-06-23 13:13] VITALS: BP 119/80
== END 2020-06-23 13:39 | disposition home or self-care (01) ==
LOC: ED 10:08
DX: G44.209 Tension-type headache, unspecified, not intractable (principal)
CPT/HCPCS: 36415; 62270; 70450; 80053; 82945; 83690; 84157; 85025; 85610; 87070; 87205; 89051; 96374; 96375; 96376; 99284; J1170; J2765

== ENCOUNTER 2020-10-21 22:26 | Outpatient (CLI) | payer OTHER | END 2020-10-21 22:27 | disposition critical access hospital (66) | LOC: EMS 22:26 | PROVIDERS: ATTEND Surgery | DX: T50.902A Poisoning by unspecified drugs, medicaments and biological substances, intentional self-harm, initial encounter (principal) | CPT/HCPCS: A0425; A0429 ==

== ENCOUNTER 2020-10-21 22:36 | Emergency (ER) | payer OTHER ==
--- NOTE | 2020-10-21 22:56 | ED Physician Documentation ---
PD HPI OVERDOSE - Stated complaint Stated Complaint: OD - History obtained from History obtained from: Patient, EMS - History of Present Illness Timing - onset: Enter time (2199), Today Subtance(s) ingested: EtOH, Antidepressent (amytripyline) Associated symptoms: Agitated Contributing factors: Depresssed, Suicidal Similar symptoms before: Diagnosis (depression) Recently seen: Not recently seen - Additional information Additional information: 40-year-old female is undergoing significant stress at home is from her has a 10-year-old child at home and she has taken an overdose of amitriptyline. She states she uses 10 mg pills and she has no idea how many pills she took. She states she did this impulsively and she has called for help. She states that she has been depressed and feeling suicidal and wants help. Review of Systems Constitutional: reports: Myalgias, Fatigue. denies: Fever Eyes: denies: Decreased vision Ears: reports: Ear pain Nose: reports: Rhinorrhea / runny nose, Congestion Throat: denies: Sore throat Cardiac: denies: Chest pain / pressure, Palpitations Respiratory: reports: Cough. 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 HEENT: Chronic hearing loss, Other - Past Surgical History Past Surgical History: Yes Ortho: Other /ANILINE PRESS WORKER: Dilation and currettage, Tubal ligation HEENT: Other - Present Medications Home Medications: Ambulatory Orders Medication Instructions Recorded Confirmed Cefdinir 300 mg PO BID #20 capsule 11/13/18 Sulfamethox/Trimeth 800/160 1 each PO BID #20 tablet 04/19/20 [Bactrim Ds 800/160] metroNIDAZOLE [Flagyl] 500 mg PO TID #30 tablet 04/19/20 Cyclobenzaprine [Flexeril] 10 mg PO TID PRN #20 tablet 06/23/20 Ibuprofen [Motrin] 800 mg PO Q8H PRN #30 tablet 06/23/20 Ondansetron Odt [Zofran] 4 mg TL Q6H PRN #10 tablet 06/23/20 Amitriptyline [Elavil] 10 mg PO DAILY 10/21/20 10/21/20 Cefdinir 300 mg PO BID #20 capsule 10/22/20 - Allergies Allergies/Adverse Reactions: Allergies Allergy/AdvReac Type Severity Reaction Status Date / Time Penicillins Allergy Unknown Verified 10/21/20 22:55 - Social History Does the pt smoke?: No Smoking Status: Never smoker Does the pt drink ETOH?: Yes Does the pt have substance abuse?: Yes - Immunizations Immunizations are current?: Yes - POLST Patient has POLST: No PD ED PE NORMAL - General General: Alert and oriented X 3, Well developed/nourished, Other (tearful with appology) - HEENT HEENT: Atraumatic, PERRL, EOMI, Other (both TM's are inflamed with distortion of the landmarks and there is tympanosclerosis present bilaterally ) - Neck Neck: Supple, no meningeal sign, No bony TTP - Cardiac Cardiac: No murmur, Other (tachy to 110) - Respiratory Respiratory: No respiratory distress, Clear bilaterally - Abdomen Abdomen: Soft, Non tender - Back Back: No CVA TTP, No spinal TTP - Derm Derm: Normal color, No rash - Extremities Extremities: No deformity, No edema - Neuro Neuro: Alert and oriented X 3, heel seat sander 2-12 intact, No motor deficit, No sensory deficit, Normal speech Eye Opening: Spontaneous Motor: Obeys Commands Verbal: Oriented GCS Score: 15 - Psych Psych: Other (Mood is sad the affect is labile and sad) Results - Vitals Vitals: Vital Signs - 24 hr 10/21/20 10/21/20 10/22/20 22:49 23:00 00:39 Temperature 37 C 37 C Heart Rate 124 H 95 93 Respiratory 18 21 20 Rate Blood Pressure 150/106 H 127/90 H O2 Saturation 98 99 100 10/22/20 10/22/20 10/22/20 02:44 03:59 06:18 Temperature Heart Rate 101 H 101 H 100 Respiratory 25 H 13 24 Rate Blood Pressure 110/84 H O2 Saturation 100 100 98 Oxygen O2 Source Room air - EKG (time done) 2248 Rate: Rate (enter#) (110) Rhythm: Sinus tachycardia Ischemia: Non specific changes (borderline flat T's lateral) Compare to prior EKG: Old EKG unavailable Computer interpretation: Agree with computer - Labs Labs: Laboratory Tests 10/21/20 10/21/20 10/21/20 11:15 11:15 11:15 WBC 8.8 RBC 4.32 Hgb 14.6 Hct 42.5 MCV 98.4 MCH 33.8 H MCHC 34.4 RDW 12.6 Plt Count 240 MPV 10.0 Neut # (Auto) 5.9 Lymph # (Auto) 2.0 [place] # (Auto) 0.6 Eos # (Auto) 0.2 Baso # (Auto) 0.1 Absolute Nucleated RBC 0.00 Nucleated RBC % 0.0 Sodium 139 Potassium 3.0 L Chloride 106 Carbon Dioxide 21 Anion Gap 12.0 BUN 7 Creatinine 0.5 Estimated GFR (MDRD) 135 Glucose 137 H Calcium 9.3 Total Bilirubin 0.5 AST 49 H ALT 74 H Alkaline Phosphatase 67 Total Protein 7.3 Albumin 4.5 Globulin 2.8 Albumin/Globulin Ratio 1.6 Lipase 30 TSH 1.54 Urine Color Urine Clarity Urine pH Ur Specific [place] Urine Protein Urine Glucose (UA) Urine Ketones Urine Occult Blood Urine Nitrite Urine Bilirubin Urine Urobilinogen Ur Leukocyte Esterase Urine RBC Urine WBC Ur Squamous Epith Cells Urine Bacteria Ur Microscopic Review Urine Culture Comments Urine HCG, Qual Salicylates < 6.0 Urine Opiates Screen Ur Oxycodone Screen Urine Methadone Screen Ur Propoxyphene Screen Acetaminophen 13 Ur Barbiturates Screen Ur Tricyclics Screen Ur Phencyclidine Scrn Ur Amphetamine Screen U Methamphetamines Scrn U Benzodiazepines Scrn Urine Cocaine Screen U Cannabinoids Screen Ethyl Alcohol 278.2 10/21/20 10/22/20 23:04 06:00 WBC RBC Hgb Hct MCV MCH MCHC RDW Plt Count MPV Neut # (Auto) Lymph # (Auto) [place] # (Auto) Eos # (Auto) Baso # (Auto) Absolute Nucleated RBC Nucleated RBC % Sodium Potassium Chloride Carbon Dioxide Anion Gap BUN Creatinine Estimated GFR (MDRD) Glucose Calcium Total Bilirubin AST ALT Alkaline Phosphatase Total Protein Albumin Globulin Albumin/Globulin Ratio Lipase TSH Urine Color YELLOW Urine Clarity CLEAR Urine pH 6.0 Ur Specific [place] <=1.005 Urine Protein NEGATIVE Urine Glucose (UA) NEGATIVE Urine Ketones NEGATIVE Urine Occult Blood SMALL H Urine Nitrite NEGATIVE Urine Bilirubin NEGATIVE Urine Urobilinogen 0.2 (NORMAL) Ur Leukocyte Esterase NEGATIVE Urine RBC 0-5 Urine WBC 0-3 Ur Squamous Epith Cells FEW Squamous Urine Bacteria Rare Ur Microscopic Review INDICATED Urine Culture Comments NOT INDICATED Urine HCG, Qual NEGATIVE Salicylates Urine Opiates Screen NEGATIVE Ur Oxycodone Screen NEGATIVE Urine Methadone Screen NEGATIVE Ur Propoxyphene Screen NEGATIVE Acetaminophen Ur Barbiturates Screen NEGATIVE Ur Tricyclics Screen NEGATIVE Ur Phencyclidine Scrn NEGATIVE Ur Amphetamine Screen NEGATIVE U Methamphetamines Scrn NEGATIVE U Benzodiazepines Scrn NEGATIVE Urine Cocaine Screen NEGATIVE U Cannabinoids Screen NEGATIVE Ethyl Alcohol 114.3 PD MEDICAL DECISION MAKING - ED course Complexity details: reviewed results, re-evaluated patient, considered differential, d/w patient ED course: 38-year-old female with an amitriptyline overdose is uncertain how many pills she has taken there were no EKG changes or rhythm abnormalities associated with this overdose. She did vomit shortly after taking the overdose and she is found to be significantly intoxicated. She has agreed to evaluation either by telepsych or with the social group worker and we will put in a telepsych consult but the patient is still intoxicated. She will have to wait until about 6 AM for a redraw and further evaluation. At 6:45am she is medically cleared for psych evaluation. She has wanted to leave to go to be with her children and we were able to convince her to stay to get help and she is accepting. On physical examination she was found to have otitis bilaterally and this is something she has had an issue with a number of times. She is given a dose of dexamethasone we will put her on a course of antibiotic. At shift change care is turned over to Dr. Harrison with pending telepsych recommendations. Departure - Departure Clinical Impression: Overdose Qualifiers: Encounter type: initial encounter Injury intent: intentional self-harm Qualified Code(s): T50.902A - Poisoning by unspecified drugs, medicaments and biological substances, intentional self-harm, initial encounter Depression Qualifiers: Depression Type: major depressive disorder Major depression recurrence: recurrent Active/Remission status: currently active Major depression episode severity: moderate Qualified Code(s): F33.1 - Major depressive disorder, recurrent, moderate Otitis media Qualifiers: Otitis media type: suppurative Chronicity: acute Laterality: bilateral Recurrence: recurrent Spontaneous tympanic membrane rupture: without spontaneous rupture Qualified Code(s): H66.006 - Acute suppurative otitis media without spontaneous rupture of ear drum, recurrent, bilateral Prescriptions: Cefdinir 300 mg PO BID #20 capsule
[2020-10-21] MEDS ORDERED: DEXAMETHASONE 10 MG/ML VIAL PO STA (23:11)
[2020-10-21] MEDS ORDERED: CHERRY SYRUP 10 ML UDC PO ONE (23:11)
[2020-10-21 23:21] LABS: MUDS CUTOFF CONCENTRATIONS CUTOFF CONC BELOW:
[2020-10-21 23:22] LABS: BASOPHILS # (AUTO) 0.1 10^3/uL (0.0-0.1); BASOPHILS % (AUTO) 0.9 %; EOSINOPHILS # (AUTO) 0.2 10^3/uL (0.0-0.7); EOSINOPHILS % (AUTO) 2.5 %; HGB - HEMOGLOBIN 14.6 g/dL (12.0-16.0); LYMPHOCYTES % (AUTO) 22.5 %; MEAN CORPUSCULAR HEMOGLOBIN 33.8 pg (27.0-31.0); MEAN CORPUSCULAR HGB CONC 34.4 g/dL (32.0-36.0); MEAN CORPUSCULAR VOLUME 98.4 fL (81.0-99.0); MONOCYTES # (AUTO) 0.6 10^3/uL (0.0-1.0); MONOCYTES % (AUTO) 6.7 %; NEUTROPHILS # (AUTO) 5.9 10^3/uL (1.5-6.6); NEUTROPHILS % (AUTO) 67.1 %; PLT - PLATELET COUNT 240 10^3/uL (130-450); RED BLOOD COUNT 4.32 10^6/uL (4.20-5.40); RED CELL DISTRIBUTION WIDTH 12.6 % (12.0-15.0); WHITE BLOOD COUNT 8.8 x10^3/uL (4.8-10.8)
[2020-10-21 23:24] LABS: BILIRUBIN,URINE NEGATIVE (NEGATIVE); GLUCOSE, URINE (UA) NEGATIVE (NEGATIVE); KETONES,URINE (UA) NEGATIVE (NEGATIVE); LEUKOCYTE ESTERASE, URINE NEGATIVE (NEGATIVE); NITRITE,URINE NEGATIVE (NEGATIVE); OCCULT BLOOD,URINE SMALL (NEGATIVE); PROTEIN,URINE NEGATIVE (NEGATIVE); UROBILINOGEN,URINE 0.2 (NORMAL) E.U./dL (NORMAL)
[2020-10-21 23:27] LABS: CLARITY,URINE CLEAR (CLEAR); HCG UR QUAL NEGATIVE
[2020-10-21 23:32] LABS: BACTERIA,URINE Rare /HPF (None Seen); RBC,URINE 0-5 /HPF (0-5); SQUAMOUS EPITHELIAL CELL,UR FEW Squamous (<= Few)
[2020-10-21 23:34] LABS: AMPHETAMINE SCREEN,URINE NEGATIVE (NEGATIVE); BENZODIAZEPINES SCREEN, URINE NEGATIVE (NEGATIVE); COCAINE SCREEN URINE NEGATIVE (NEGATIVE); METHADONE SCREEN, URINE NEGATIVE (NEGATIVE); METHAMPHETAMINES SCREEN, URINE NEGATIVE (NEGATIVE); OPIATE SCREEN, URINE NEGATIVE (NEGATIVE); OXYCODONE SCREEN, URINE NEGATIVE (NEGATIVE); PROPOXYPHENE SCREEN, URINE NEGATIVE (NEGATIVE); TRICYCLIC ANTIDEPRESSANT,URINE NEGATIVE (NEGATIVE)
[2020-10-21 23:39] LABS: ACETAMINOPHEN 13 ug/mL (10-30); ALBUMIN 4.5 g/dL (3.2-5.5); ALBUMIN/GLOBULIN RATIO 1.6 (1.0-2.2); ALKALINE PHOSPHATASE 67 IU/L (42-121); ALT ALANINE AMINOTRANSFERASE 74 IU/L (10-60); AST ASPARTATE AMINOTRANSFERASE 49 IU/L (10-42); BILIRUBIN,TOTAL 0.5 mg/dL (0.2-1.0); BUN - BLOOD UREA NITROGEN 7 mg/dL (6-20); CALCIUM 9.3 mg/dL (8.5-10.3); CARBON DIOXIDE - CO2 21 mmol/L (21-32); CHLORIDE 106 mmol/L (101-111); CREATININE 0.5 mg/dL (0.4-1.0); GLUCOSE 137 mg/dL (70-100); LIPASE 30 U/L (22-51); SALICYLATE < 6.0 mg/dL; SODIUM 139 mmol/L (135-145); TOTAL PROTEIN 7.3 g/dL (6.7-8.2)
--- NOTE | 2020-10-22 08:30 | TELEPSYCH PHYS NOTE ---
Telepsych Note - CHIEF COMPLAINT/HX OF PRESENT ILLNESS Chief Complaint and History of Present Illness: Location of patient: [place] Location of provider: [facility] This evaluation was conducted via telepsychiatry with the assistance of onsite staff. Reason for consult: Risk assessment History of Present Illness: Chart reviewed and appreciated, case discussed with referring provider. 40 y/o female with history of depression, presenting to ED with report of overdose on handful of Elavil 10 mg in setting of alcohol intoxication. Pt was not sure how many pills she took but reported feeling suicidal and requesting help. Pts BAL on arrival was 278.2. Pt is now medically clear, did not have any acute issues related to overdose. Per notes, pt reported this to be an impulsive act and called for help herself. On interview, pt reports, I have a lot going on in my life. Pt states that she has not slept or eaten well recently, burning myself out. Pt has been feeling depressed, sometimes skipping multiple meals in a row. However, she is still getting to work every day and still able to take care of her children appropriately per report. Last night, pt had a few drinks and mixed it with my medicine to go to sleep, and it didnt go well together. Pt states that she only took one sleeping pill. Upon reviewing the information that pt initially reported, pt states that she does not recall taking more than one pill but maybe she did, as she was intoxicated. Pt does recall having suicidal thoughts, I was an emotional wreck, so yes. This morning, pt reports feeling okay, just tired. Pt denies further hopelessness or suicidal thoughts today, states that she regrets her actions and once she realized she may have caused herself harm she c alled for help. Pt reports that she does need treatment for her depression but feels safe to go home and would prefer not to be admitted for inpatient treatment. Pt is willing to go to outpatient treatment and follow up with PCP in the meantime. Pt states that she think this incident was due to drinking, and she does not normally drink heavily. I dont think it wouldve happened had I not drank, to be honest. Pt states that she will not be drinking at all until she gets her mood back in check. Pt reports having vitamin D deficiency which also exacerbates her mood issues. Pt states that she has never had suicidal thoughts while sober but if she did, she would not act on it because of her kids. Pt states that if these thoughts did happen she would call someone for help right away or return to the emergency room. Pt gives screen writer permission to contact her for collateral and safety planning. States that they are having marital issues and currently but she would be willing to have him stay at home with her as part of safety plan. - SI/HI/SELF HARM SI/HI/Self Harm Text (Current or History of):: Past SI/Self harm: Pt reports 2 years ago took pills in setting of alcohol intoxication. - VIOLENCE/LEGAL/COLLATERAL Violence - Legal - Collateral: Past HI/Violence: Pt denies Access to firearms: Pt denies Legal: Pt denies Collateral: Spoke with pts at [phone]. reports that he has not been at home with pt for about a week and a half due to their recent separation. However, he reports that this is always a difficult time of year for pt and she has been more depressed for the past 3 to 4 months. reports that pts boss texted him last night to let him know they were headed to the ER. states that a similar incident happened about 2 years ago, confirms that pt had been drinking at that time as well. found a 6-pack of beer and liter of schnapps that was gone, states that normally pt is not much of a drinker but must have drank quite a bit in this instance. agrees that the alcohol likely led to this situation and denies imminent safety concerns for pt, does not think she needs inpatient treatment. I think this was an isolated thing and she would not do it again if discharged. agrees to go back home for now and stay with pt in the coming days, to make sure she is doing okay. also agrees to lock up excess medications and manage pts meds for now. confirms that there are no guns in the household. Discussed importance of pt avoiding alcohol and following up with outpatient treatment. to contact emergency services for any future safety concerns. - PSYCHIATRIC HX/TREATMENT HX Psychiatric/Treatment Hx Other: Psychiatric History/Treatment History: Pt reports history of depression, was in treatment with psychiatrist and therapist for a little bit but not in the past couple of years, states that she was doing well until recently. Pt currently takes Elavil for sleep only. Pt denies history of inpatient psychiatric admissions. - DRUG/ALCOHOL HX Substance use/abuse/alcohol text: Drug/Alcohol History: Pt reports drinking alcohol a couple of times a month, a few drinks per occasion. Denies drug use. - MEDICAL HX Does the pt have a hx of MRSA?: No Eyes, Ears, Nose, Throat: Chronic hearing loss, Other Gastrointestinal: GERD Musculoskeletal: Other (Back spasms) PMH Other: cochlear implant - SURGICAL HX Orthopedic: Other Gynecologic: Dilation and currettage, Tubal ligation - HOME MEDICATIONS Home Meds (as last confirmed): Patient History Medication Instructions Recorded Confirmed Amitriptyline [Elavil] 10 mg PO DAILY 10/21/20 10/21/20 - ALLERGIES Allergies (as last confirmed): Allergies Allergy/AdvReac Type Severity Reaction Status Date / Time Penicillins Allergy Unknown Verified 10/21/20 22:55 - FAMILY PSYCH/SUICIDE/SOCIAL HX-MENTAL Family - Suicide - Social Hx and Mental Status Exam: Family Psych History/History of suicide: None known Social History: Recently , lives with her 2 children ages 10 and 18. Also has a 24 y/o daughter who lives in [place]. 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 and currently in [employer] school Stressors: Recent separation, school/work stress, issues with pandemic Trauma: Pt denies Strengths/supports: Pt reports most support from her oldest daughter Mental Status Exam: Appearance and attire: disheveled, appears stated age, wearing hospital gown Attitude and behavior: pleasant, calm, cooperative; good eye contact Speech: normal rate/volume/tone Mood: dysthymic Affect: restricted Association and thought processes: linear, logical, goal-directed Thought content: denies SI or HI Perception: no evidence of delusions or hallucinations Sensorium and orientation: alert, oriented x 4 (except does not know name of hospital) Memory and intellectual functioning: grossly intact Insight and judgment: fair currently - PATIENT PROBLEM LIST (1) Major depressive disorder, single episode, unspecified Qualifiers: Active/Remission status: remission status unspecified Qualified Code(s): F32.9 - Major depressive disorder, single episode, unspecified - TREATMENT/PHARMACOLOGICAL RECOMMENDATION Treatment - Pharmacological - Therapy Recommendations: Impression/Risk Assessment: 40 y/o female with history of depression, presented to ED after overdosing on handful of sleeping pills (unknown quantity) in setting of alcohol intoxication. Pt initially reported SI but now denying SI or HI, states that it was related to the alcohol. Pt had one prior incident with similar presentation, about 2 years ago, also in setting of alcohol use. Pt does endorse depressed mood and multiple stressors, but reports wanting to get better and move forward. This act was impulsive, pt is remorseful currently and called for help right after it happened. Pt intends to abstain from alcohol use and is not a frequent drinker at baseline. Pt is employed and in school, has no access to firearms, has good support, reports protective factor of her children. Pt currently presents as future-oriented and help-seeking, contracts for safety and willing to resume psychiatric treatment as outpatient. Pts confirms history provided by pt, agrees that this incident was likely alcohol-related, denies concern that pt would try to hurt herself if discharged and reports feeling safe for her to go home. Pt and are agreeable to safety plan including staying at home with pt, meds being locked up and managing meds. Based on current exam and collateral information, imminent risk of harm to self or others is low. Diagnosis: F32.9 Unspecified depressive disorder Treatment Recommendations: 1. Disposition: At this time, pt declines voluntary psychiatric admission and does not meet criteria for involuntary admission. Therefore, recommend discharge home with and safety plan as outlined above. 2. Psychiatric medications: No changes recommended at this time. 3. Referrals to outpatient psychiatry and psychotherapy staff to please assist in setting up services for pt. 4. Pt to follow up with PCP as soon as possible after discharge, and continue following up in that setting until she can be seen by a psychiatrist. 5. Staff to please provide pt with any available crisis resources in her area. 6. Pt/ to call 911 or pt to return to ED if at any time feeling suicidal or otherwise unsafe. The above recommendations were discussed with pt and pts who expressed understanding/agreement. Attending physician not available at this time, recommendations were relayed to CHANO Parra. - TIME SPENT & PROVIDER LOCATION Telepsych consultation conducted via videoconferencing: Yes List names and roles of persons who participated in consult: CHANO Parra Telepsych Provider Location: [place] Time Telepsych consult began: 07:20 Time Telepsych consult completed: 08:30
[2020-10-22] MEDS ORDERED: ONDANSETRON 4 MG/2 ML VIAL IVP STA (13:06)
--- NOTE | 2020-10-22 13:24 | ED Physician Documentation ---
ED Addendum - Addendum Addendum: 10/22/20 13:23 Seen by telepsych as well as social work. They feel she is clear for discharge and has a safety plan with forward thinking and goal-directed plans. She does not have any ongoing suicidal ideation. She has been here long enough to not show any ill effect of the medications. Social work worked with her for tight follow-up with counseling. Discharge plan: Patient is discharged home in stable condition Diagnoses: 1. Situational depression 2. Medication overdose 3. Alcohol intoxication
[2020-10-22 13:36] VITALS: BP 145/93
== END 2020-10-22 13:36 | disposition home or self-care (01) ==
LOC: EDUNIT# → ED 22:36
DX: T43.012A Poisoning by tricyclic antidepressants, intentional self-harm, initial encounter (principal); F10.929 Alcohol use, unspecified with intoxication, unspecified; F33.1 Major depressive disorder, recurrent, moderate; F43.21 Adjustment disorder with depressed mood; H66.006 Acute suppurative otitis media without spontaneous rupture of ear drum, recurrent, bilateral; R00.0 Tachycardia, unspecified
CPT/HCPCS: 80320; 80329; 81001; 81025; 83690; 93005; 96374; 99285; A9270; G0427; 36415; 80053; 80306; 80307; 81003; 84443; 85025; 87086

== ENCOUNTER 2022-01-30 13:10 | Emergency (ER) | payer OTHER ==
[2022-01-30] MEDS ORDERED: SODIUM CHLORIDE 0.9% 1,000 ML IV STA (14:26)
[2022-01-30] MEDS ORDERED: diphenhydrAMINE INJ 50 MG/ML VIAL IVP STA (14:26)
[2022-01-30] MEDS ORDERED: DEXAMETHASONE 10 MG/ML VIAL IVP STA (14:26)
[2022-01-30] MEDS ORDERED: KETOROLAC 30 MG/ML VIAL IVP STA (14:26)
[2022-01-30] MEDS ORDERED: PROCHLORPERAZINE 10 MG/2 ML VIAL IVP STA (14:26)
[2022-01-30] MEDS ORDERED: cefTRIAXone 1 GM in SODIUM CHLORIDE 0.9% MINIBAG 100 ML IV STA (14:26)
--- NOTE | 2022-01-30 14:29 | ED Physician Documentation ---
PD HPI HEADACHE - Stated complaint Stated Complaint: MIGRAINE - Chief complaint Chief Complaint: Neuro - History obtained from History obtained from: Patient - History of Present Illness Timing - onset: How many days ago (3) Timing - onset during: Rest Timing - duration: Days (3) Timing - details: Gradual onset, Still present Location: Global Quality: Throbbing Associated symptoms: Nausea, Vomiting, Other (photophobia and right ear pain). No: Fever, Stiff neck, Weakness, Numbness, Syncope, Seizure, Eye pain, Vision changes Improved by: Rest, Dark room, Quiet Worsened by: Light, Noise, Moving Similar symptoms before: Diagnosis (migraine) Recently seen: Not recently seen - Additional information Additional information: 41-year-old female with a history of migraine and a history of a failed cochlear implant has developed a migraine that is worse than her usual. She has had a migraine for 3 days. She has not had relief with ibuprofen or Tylenol. She has had vomiting today. She is complaining of pain and cough pain in her right ear and cough. This is her bad ear.She feels it is likely she has infection present. Review of Systems Constitutional: denies: Fever Eyes: reports: Photophobia. denies: Decreased vision Ears: reports: Loss of hearing (similar to always on the right), Ear pain Nose: reports: Rhinorrhea / runny nose, Congestion Throat: denies: Sore throat Cardiac: denies: Chest pain / pressure, Palpitations Respiratory: reports: Cough. denies: Dyspnea GI: reports: Nausea, Vomiting. 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 HEENT: Chronic hearing loss, Other Musculoskeletal: Other (Back spasms) - Past Surgical History Past Surgical History: Yes Ortho: Other /GUNITE NOZZLE OPERATOR: Dilation and currettage, Tubal ligation HEENT: Other - Present Medications Home Medications: Ambulatory Orders Medication Instructions Recorded Confirmed Amitriptyline [Elavil] 10 mg PO DAILY 10/21/20 01/30/22 Cefdinir 300 mg PO BID #20 cap 01/30/22 - Allergies Allergies/Adverse Reactions: Allergies Allergy/AdvReac Type Severity Reaction Status Date / Time Penicillins Allergy Unknown Verified 01/30/22 13:30 - Social History Does the pt smoke?: No Smoking Status: Never smoker Does the pt drink ETOH?: Yes Does the pt have substance abuse?: Yes - Immunizations Immunizations are current?: Yes - POLST Patient has POLST: No PD ED PE NORMAL - Vitals Vital signs reviewed: Yes (hypertnesive ) - General General: Alert and oriented X 3, Well developed/nourished, Other (41-year-old female laying in the position in a darkened room with her hands over her eyes.) - HEENT HEENT: Atraumatic, PERRL, EOMI, Other (Left TM is clear the right is distorted with a healed over tube window showing erythema without drainage. ) - Neck Neck: Supple, no meningeal sign, No bony TTP, Other (tenderness to the trapezius at the insertion to the occiput.) - Cardiac Cardiac: RRR, No murmur - Respiratory Respiratory: No respiratory distress, Clear bilaterally - Abdomen Abdomen: Normal bowel sounds, Soft, Non tender, Non distended, No organomegaly - Back Back: No CVA TTP, No spinal TTP - Derm Derm: Normal color, Warm and dry, No rash - Extremities Extremities: No deformity, No edema - Neuro Neuro: Alert and oriented X 3, strategic advisor 2-12 intact, No motor deficit, No sensory deficit, Normal speech Eye Opening: Spontaneous Motor: Obeys Commands Verbal: Oriented GCS Score: 15 - Psych Psych: Normal mood, Normal affect Results - Vitals Vitals: Vital Signs - 24 hr 01/30/22 01/30/22 01/30/22 13:31 14:33 15:14 Temperature 36.4 C L Heart Rate 81 71 66 Respiratory 16 18 Rate Blood Pressure 136/101 H 134/94 H 125/82 H O2 Saturation 98 97 99 01/30/22 01/30/22 15:30 16:14 Temperature Heart Rate 73 84 Respiratory 14 17 Rate Blood Pressure 128/95 H 134/69 H O2 Saturation 97 100 Oxygen O2 Source Room air PD MEDICAL DECISION MAKING - ED course Complexity details: reviewed old records, reviewed results, re-evaluated patient, considered differential, d/w patient, d/w family ED course: 41 y/o female with a history of migraine has status for 3 days. She is given a migraine cocktail of 1 L of saline, Compazine 10 mg, Toradol 30 mg, dexamethasone 10 mg, Benadryl 25 mg. The patient had relief of her headache. She has otitis as well and she has had recurrent infections and she is administered Rocephin in the emergency department as well. The patient has improvement in symptoms and is discharged to home. Departure - Departure Disposition: 01 Home, Self Care Clinical Impression: Otitis media Qualifiers: Otitis media type: suppurative Chronicity: acute Laterality: right Recurrence: recurrent Spontaneous tympanic membrane rupture: without spontaneous rupture Q ualified Code(s): H66.004 - Acute suppurative otitis media without spontaneous rupture of ear drum, recurrent, right ear Migraine Qualifiers: Migraine type: with aura Status migrainosus presence: with status migrainosus Intractability: not intractable Qualified Code(s): G43.101 - Migraine with aura, not intractable, with status migrainosus Condition: Stable Instructions: ED Headache Migraine, ED Otitis Media Acute Adult Follow-Up: KHLOE RIBEIRO DO [Primary Care Provider] - Prescriptions: Cefdinir 300 mg PO BID #20 cap Comments: Nayeli today you have been given a cocktail for migraine consisting of the saline, Compazine, Benadryl, dexamethasone and Toradol. We have also treated your middle ear infection with Rocephin. Our expectation is improvement in your headache and improvement in your middle ear infection. I have E scribed a prescription for cefdinir to [facility] in [place]. Discharge Date/Time: 01/30/22 16:16
[2022-01-30 16:16] VITALS: BP 134/69
== END 2022-01-30 16:16 | disposition home or self-care (01) ==
LOC: ED 13:10
DX: G43.101 Migraine with aura, not intractable, with status migrainosus (principal); H66.004 Acute suppurative otitis media without spontaneous rupture of ear drum, recurrent, right ear
CPT/HCPCS: 96365; 96375; 99284; 99285; J1200